=== PATIENT | female | born 1995 | race Caucasian/White ===

== ENCOUNTER 2016-11-30 09:43 | Inpatient (IN) | payer BC ==
[2016-11-30] MEDS: Lactated Ringers 1,000 ML IV SCH ×4 (10:40→21:25)
[2016-11-30] MEDS ORDERED: Ondansetron 4 MG/2 ML SDV IV PRN (12:26)
[2016-11-30] MEDS ORDERED: Nalbuphine 10 MG/1 ML Vial IVPUSH PRN (12:26)
[2016-11-30] MEDS ORDERED: fentaNYL 100 MCG/2 ML SDV ONE (13:22)
[2016-11-30] MEDS ORDERED: ePHEDrine 50 MG/ML SDV ONE (13:40)
[2016-11-30] MEDS ORDERED: Phenylephrine 1% 10 MG/ML SDV ONE (13:56)
--- NOTE | 2016-11-30 14:15 | PCM.SN ---
- Free Text/Narrative Note: called to provide labor pain relief via intrathecal for this patient. After chart reviewed, npo status verified, consent signed and monitors on, proceeded. With patient in sitting position, sterile prep/drape. Skin wheal at L3-4 with 1% Lido. LPX1 at L3-4 with 25g pencan spinal needle. Positive, free flowing clear CSF. No heme, no paresthesia. Then 6mg mpf HB spinal 0.75% marcaine, 20mcg sufenta, 30mcg fentanyl, 0.4ml preservative free normal saline, plus epi wash intrathecally. Block to around T2, pt reported pain relief with subsequent contractions. FHT's remained stable, but maternal SBP dropped so ephedrine, 20mg then another 20mg given. Pt anxious about density of block and SBP dropped below 100 again, so 100 phenylepherine given with good effect.
[2016-11-30] MEDS ORDERED: Oxytocin/Normal Saline 30 UNIT/500 ML BAG IV SCH (15:15)
[2016-11-30] MEDS ORDERED: Misoprostol 400 MCG (4 X 100 MCG TAB) RECTAL PRN (18:14)
[2016-11-30] MEDS ORDERED: Methylergonovine 0.2 MG/1 ML Amp IM PRN (18:14)
[2016-11-30] MEDS ORDERED: Lactated Ringers 500 ML IV ONE (18:14)
[2016-11-30] MEDS ORDERED: Lidocaine 1% 30 ML SDV INJECT PRN (18:14)
[2016-11-30] MEDS ORDERED: Carboprost Tromethamine 250 MCG/1 ML Amp IM PRN (18:14)
[2016-11-30] MEDS ORDERED: Sodium Chloride 0.9% 10 ML Syringe FLUSH PRN (18:14)
[2016-11-30] MEDS ORDERED: Simethicone 80 MG Tab.Chew PO PRN (18:20)
[2016-11-30] MEDS ORDERED: Benzocaine/Menthol 20%-0.5% Spray 56 GM Canister TOP PRN (18:20)
[2016-11-30] MEDS ORDERED: Zolpidem 5 MG Tab PO PRN (18:20)
--- NOTE | 2016-11-30 18:33 | PCM.DEL ---
L & D Note - General Info Date of Service: 11/30/16 (Time of delivery 1705) Mother's Due Date: 12/14/16 (38 weeks) - Delivery Note Labor: Spontaneous, Augmented by ARM (was having cxns on admit--mild, cervix 7+ cm dilated at clinic. b), Augmented by Oxytocin Delivery Outcome: Livebirth Infant Delivery Method: Spontaneous Vaginal Delivery Delivery Mode: Vacuum Extraction Presentation: Left Occiput Anterior (DANA) Nuchal Cord: Reduced (loose X 1 ) Prep: Povidone-Iodine (Betadine Anesthesia Type: Local, Intrathecal Anesthetic: Lidocaine (Xylocaine) 1% Plain Local Anesthetic Volume: 5cc Amniotic Fluid Description: Clear Episiotomy Type: None Laceration: 2nd Degree (small midline laceration) Suture type: Vicryl Suture size: 3-0 Placenta: Intact, Spontaneous Cord: 3 Vessels Estimated Blood Loss: 250 Resuscitation Needed: No : Suctioned, Bulb Syringe, Stimulated, Warmed, [place] Used (to mother's adbomen/chest for skin to skin contact and nursing. [facility]) Provider: Megan Humphrey Score 1 min: 8 Score 5 min: 9 Post Delivery Events: Shoulder Dystocia (mild, Viral and rotation of anterior shoulder forward under pubic bone successful) Second Stage Interventions: Reports: Encouragement Given, Pushing Effectively, Pushing, McRobert's Position Delivery Comments (Free Text/Narrative):: Used vacuum --low profile for 2 cxns, and regular for 2 contractions with excellent results. Induction Criteria - Palmer Score Palmer Score Dilation: > 5 cm Palmer Score Effacement: 60-70% Palmer Score 's Station: -2 Palmer Score Consistency: Soft Palmer Score Cervix Position: Anterior Palmer Score Total: 10 Palmer Score Presenting Part: Reports: Cephalic - Induction Gestational Age >/= 39 wks: No Medical Indication: advanced cervical dilation (7+cm, BBOW) at term (38cm) Estimated Pelvis: Reports: Adequate Reassuring Monitoring Strip: Yes Absence of Tachy Systole: Yes - Augmentation Estimated Pelvis: Reports: Adequate Weight Estimated:: Reports: AGA Reassuring Monitoring Strip: Yes Absence of Tachy Systole: Yes Vacuum Extractor Progress Note - Alternative Labor Strategies Considered Alternative Labor Strategies Considered:: Reports: Yes Strategies Considered:: Reports: Contraction Intensity Adequate, Empty Bladder, Rest Indications Considered:: Reports: Yes Indications:: Reports: Shortening of 2nd Stage for Maternal Benefit Time Out:: Reports: Yes - Patient Prepared Patient Prepared:: Reports: Yes Informed Consent:: Reports: Yes Risks: Reports: Yes Anesthesia/Analgesia Adequate:: Reports: No - Probability of Success High Probability of Success:: Reports: Yes Weight Estimated:: Reports: AGA Patient Diabetic:: Reports: No Pelvis Adequate:: Reports: Yes Position:: DANA/LOT Asynclitic:: Reports: No Station:: +2 - Application Time Maximum Application Time & Number of Pop-Offs Predetermined:: Reports: Yes Type of Vacuum Used:: Reports: Low profile, Cup: [place] type Vacuum Extraction: Successful - Exit Strategy Exit strategy available:: Reports: Yes and resuscitation teams readily available:: Reports: Yes Consult as indicated:: not indicated - General Info Date of Service: 11/30/16 - Review of Systems General: Reports: No Symptoms HEENT: Reports: No Symptoms Pulmonary: Reports: No Symptoms Cardiovascular: Reports: No Symptoms Gastrointestinal: Reports: No Symptoms Musculoskeletal: Reports: No Symptoms Skin: Reports: No Symptoms Neurological: Reports: No Symptoms Psychiatric: Reports: No Symptoms - Patient Data Weight - Most Recent: 215 lb Lab Results Last 24 Hours: Laboratory Results - last 24 hr 11/30/16 Range/Units 11:05 WBC 8.6 (5.0-10.0) 10^3/uL RBC 4.28 (4.2-5.4) 10^6/uL Hgb 11.2 L (12.0-16.0) g/dL Hct 34.8 L (37.0-47.0) % MCV 81.3 (80-100) fL MCH 26.2 L (27.0-34.0) pg MCHC 32.2 L (33.0-35.0) g/dL Plt Count 177 (150-450) 10^3/uL Med Orders - Current: Current Medications Acetaminophen (Tylenol) 650 mg PO Q4H PRN PRN Reason: Pain (Mild 1-3) and fever Benzocaine/Menthol (Dermoplast Pain Relief [place]) 0 gm TOP Q4H PRN PRN Reason: Perineal comfort measures Carboprost Tromethamine (Hemabate Ds) 250 mcg IM ASDIRECTED PRN PRN Reason: HEMORRHAGE Docusate Sodium (Colace) 100 mg PO BID PRN PRN Reason: Constipation Lactated Ringer's (Ringers, Lactated) 1,000 mls @ 125 mls/hr IV ASDIRECTED LEORA Last Admin: 11/30/16 12:56 Dose: 125 mls/hr Oxytocin/Sodium Chloride (Pitocin In Ns 30 Unit/500 Ml) 30 unit in 500 mls @ 2 mls/hr IV TITRATE LEORA; 2 MUNITS/MIN PRN Reason: Protocol Lactated Ringer's (Ringers, Lactated) 500 mls @ 500 mls/hr IV .BOLUS ONE Stop: 11/30/16 19:13 Ibuprofen (Motrin) 800 mg PO Q8H PRN PRN Reason: Mild Pain or Fever Lidocaine HCl (Xylocaine-Mpf 1%) 30 ml INJECT ASDIRECTED PRN PRN Reason: Perineal Repair Methylergonovine Maleate (Methergine) 0.2 mg IM ASDIRECTED PRN PRN Reason: Hemorrhage Misoprostol (Cytotec) 800 mcg RECTAL ASDIRECTED PRN PRN Reason: Hemorrhage Nalbuphine HCl (Nubain) 10 mg IVPUSH Q6H PRN PRN Reason: Pain (mild 1-3) Last Admin: 11/30/16 12:47 Dose: 10 mg Ondansetron HCl (Zofran) 4 mg IV Q4H PRN PRN Reason: Nausea/Vomiting Last Admin: 11/30/16 12:47 Dose: 4 mg Prenat Multivit/Katherine/Iron/Folic Ac ( Plus Iron) 1 each PO DAILY COUNT INCLUDES THE [facility] Prenat Multivit/Oil Tank Car Cleaner/Iron/Folic Ac ( Plus Iron) each PO DAILY COUNT INCLUDES THE [facility] Simethicone (Simethicone) 80 mg PO Q4H PRN PRN Reason: Gas Sodium Chloride (Saline Flush) 10 ml FLUSH ASDIRECTED PRN PRN Reason: Keep Vein Open Zolpidem Tartrate (Ambien) 5 mg PO BEDTIME PRN PRN Reason: Insomnia Discontinued Medications Ephedrine Sulfate (Ephedrine Sulfate) Confirm Administered Dose 50 mg .ROUTE .STK-MED ONE Stop: 11/30/16 13:41 Last Admin: 11/30/16 15:03 Dose: Not Given Fentanyl (Sublimaze) Confirm Administered Dose 100 mcg .ROUTE .STK-MED ONE Stop: 11/30/16 13:23 Last Admin: 11/30/16 15:03 Dose: Not Given Phenylephrine HCl (Yefri-Synephrine) Confirm Administered Dose 10 mg .ROUTE .STK- MED ONE Stop: 11/30/16 13:57 Last Admin: 11/30/16 15:03 Dose: Not Given Sufentanil Citrate (Sufenta) Confirm Administered Dose 50 mcg .ROUTE .STK-MED ONE Stop: 11/30/16 13:24 Last Admin: 11/30/16 15:03 Dose: Not Given - Exam General: Alert, Oriented HEENT: Pupils Equal, Pupils Reactive, EOMI, Mucous Membr. Moist/[place] Neck: Supple Lungs: Clear to Auscultation, Normal Respiratory Effort Cardiovascular: Regular Rate, Regular Rhythm (Female) Exam: Cervical Dilatation, Cervical Fluid (clear), Enlarged Uterus, Heart Tones (NST reactive) Extremities: Normal Inspection, Normal Range of Motion, Non-Tender, No Pedal Edema, Normal Capillary Refill Skin: Warm, Dry, Intact Neurological: No New Focal Deficit Psy/Mental Status: Alert, Normal Affect, Normal Mood - Problem List & Annotations (1) Vacuum extractor delivery, delivered SNOMED Code(s): 022138093 Code(s): O66.5 - ATTEMPTED APPLICATION OF VACUUM EXTRACTOR AND FORCEPS Status: Acute Current Visit: Yes (2) Mother currently breast-feeding SNOMED Code(s): 525526347 Code(s): VUS6844 - Status: Acute Current Visit: Yes (3) Blood type A+ SNOMED Code(s): 340089574 Code(s): Z67.10 - TYPE A BLOOD, RH POSITIVE Status: Acute Current Visit: Yes (4) Rubella immune SNOMED Code(s): 071250145 Code(s): Z78.9 - OTHER SPECIFIED HEALTH STATUS Status: Acute Current Visit: Yes (5) Group B Streptococcus not isolated SNOMED Code(s): 045471824 Code(s): LPC0574 - Status: Acute Current Visit: Yes (6) Maternal anemia in , antepartum SNOMED Code(s): 521594902 Code(s): O99.019 - ANEMIA COMPLICATING , UNSPECIFIED TRIMESTER Status: Acute Current Visit: Yes - Problem List Review Problem List Initiated/Reviewed/Updated: Yes - My Orders Last 24 Hours: My Active Orders 11/30/16 12:26 Nalbuphine [Nubain] 10 mg IVPUSH Q6H PRN Ondansetron [Zofran] 4 mg IV Q4H PRN 11/30/16 12:30 Lactated Ringers [Ringers, Lactated] 1,000 ml IV ASDIRECTED 11/30/16 15:15 Oxytocin/Normal Saline [Pitocin in NS 30 UNIT/500 ML] 30 unit in 500 ml IV TITRATE 11/30/16 18:14 Patient Status [ADT] Routine Communication Order [RC] ASDIRECTED Notify Provider Vital Signs OB [RC] ASDIRECTED Notify Provider [RC] PRN Up ad Denisa [RC] ASDIRECTED Vital Signs [RC] PER UNIT ROUTINE Acetaminophen [Tylenol] 650 mg PO Q4H PRN Carboprost Tromethamine [Hemabate DS] 250 mcg IM ASDIRECTED PRN Lactated Ringers [Ringers, Lactated] 500 ml IV .BOLUS Lidocaine 1% [Xylocaine-MPF 1%] 30 ml INJECT ASDIRECTED PRN Methylergonovine [Methergine] 0.2 mg IM ASDIRECTED PRN Misoprostol [Cytotec] 800 mcg RECTAL ASDIRECTED PRN Sodium Chloride 0.9% [Saline Flush] 10 ml FLUSH ASDIRECTED PRN Saline Lock Insert [OM.PC] Routine Resuscitation Status Routine 11/30/16 18:17 Pump Management, Intrathecal [RC] ASDIRECTED 11/30/16 18:20 Consult to Boilermaker Apprentice [CONS] Routine Benzocaine/Menthol [Dermoplast Pain Relief [place]] See Dose Instructions TOP Q4H PRN Docusate Sodium [Colace] 100 mg PO BID PRN Ibuprofen [Motrin] 800 mg PO Q8H PRN Simethicone 80 mg PO Q4H PRN Zolpidem [Ambien] 5 mg PO BEDTIME PRN 11/30/16 18:21 Assess Lochia [WOMSER] Per Unit Routine Assess Uterine Involution [WOMSER] Per Unit Routine Breast Pump [WOMSER] Per Unit Routine Ice Therapy [OM.PC] Per Unit Routine Perineal Care [OM.PC] Per Unit Routine Sitz Bath [OM.PC] Per Unit Routine 11/30/16 Dinner Regular Diet [DIET] 12/01/16 09:00 Vit with Ca/FA/Iron [ Plus Iron] 1 each PO DAILY Vit with Ca/FA/Iron [ Plus Iron] 1 tab PO DAILY 12/02/16 05:11 CBC W/O DIFF,HEMOGRAM [HEME] AM - Assessment Assessment:: 38 week WF G2 now P2 Delivery @ 1705 on 11-30-16 Vacuum assisted vaginal delivery presented in early labor/contractions with advanced cervical dilation 7+cm @ 38 weeks Blood type A+, GBS negative, Rubella Immune Viable male , 8lb 7oz, APGARs 8 & 9 nuchal X 1, loose, easily reduced mild shoulder dystocia EBL 250, small midline 2 degree lac - Plan Plan:: Plan: Routine cares PNV Likely home PPD #2 check hgb in 2 days. follow closely. transformation consultant to see. All questions answered. hmb
--- NOTE | 2016-11-30 18:53 | PCM.LDHP ---
L&D History of Present Illness - General Date of Service: 11/30/16 (admitted from [facility]) Admit Problem/Dx: Patient Status Order with Admit Dx/Problem 11/30/16 18:14 Patient Status [ADT] Routine Admission Diagnosis/Problem Admission Diagnosis/Problem Complication of in third trimester Source of Information: Patient, Old Records, Provider, Other (EPIC pegnancy episode) History Limitations: Reports: No Limitations - History of Present Illness Timing/Duration: Reports: gradual onset, intermittent, waxing/waning Location, : Reports: Uterus Quality: Reports: Ache, Pressure Severity: Mild Pain Score: 8 - Related Data Allergies/Adverse Reactions: Allergies Allergy/AdvReac Type Severity Reaction Status Date / Time No Known Allergies Allergy Verified 11/30/16 10:46 Home Medications: Home Meds Vit with Ca/FA/Iron [ Plus Iron] 1 tab PO DAILY 11/26/16 [ History] Past Medical History - Past Health History Medical/Surgical History: Denies 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 [place] They have so named [place].) Occupation: Employed H&P Review of Systems - Review of Systems: Review Of Systems: See Below General: Reports: No Symptoms HEENT: Reports: No Symptoms Pulmonary: Reports: No Symptoms Cardiovascular: Reports: No Symptoms Gastrointestinal: Reports: No Symptoms Genitourinary: Reports: No Symptoms Musculoskeletal: Reports: No Symptoms Skin: Reports: No Symptoms Psychiatric: Reports: No Symptoms Neurological: Reports: No Symptoms Hematologic/Lymphatic: Reports: No Symptoms Immunologic: Reports: No Symptoms L&D Exam - Exam Exam: See Below - Vital Signs Vital Signs: Last Vital Signs Temp 99.5 F 11/30/16 11:00 Pulse 76 11/30/16 11:00 Resp BP 106/67 11/30/16 11:00 Pulse Ox Weight: 215 lb - OB Specific Contraction Duration (sec): 60-90 Contraction Frequency (min): 2-4 Contraction Intensity: Mild Presentation: Left Occiput Anterior (DANA) - Palmer Score Palmer Score Cervix Position: Anterior Palmer Score Consistency: Soft Palmer Score Dilation: > 5 cm Palmer Score 's Station: -2 - Exam General: Alert, Oriented HEENT: PERRLA, Conjunctiva Clear, EACs Clear, EOMI, Hearing Intact, Mucosa Moist & [place], Nares Patent, Normal Nasal Septum, Posterior Pharynx Clear, TMs Clear Neck: Supple, Trachea Midline Lungs: Clear to Auscultation, Normal Respiratory Effort Cardiovascular: Regular Rate, Regular Rhythm Genitourinary: Cervical dilitation (7+cm, BOWI and bulging, -2 st, ballots in clinic) Back Exam: Normal Inspection, Full Range of Motion Extremities: Normal Inspection, Normal Range of Motion, Non-Tender, No Pedal Edema, Normal Capillary Refill Skin: Warm, Dry, Intact Neurological: Cranial Nerves Intact, Reflexes Equal Bilateral Psychiatric: Alert, Normal Affect, Normal Mood - Patient Data Lab Results Last 24 hrs: Laboratory Results - last 24 hr 11/30/16 Range/Units 11:05 WBC 8.6 (5.0-10.0) 10^3/uL RBC 4.28 (4.2-5.4) 10^6/uL Hgb 11.2 L (12.0-16.0) g/dL Hct 34.8 L (37.0-47.0) % MCV 81.3 (80-100) fL MCH 26.2 L (27.0-34.0) pg MCHC 32.2 L (33.0-35.0) g/dL Plt Count 177 (150-450) 10^3/uL Result Diagrams: 11/30/16 11:05 - Problem List (1) Vacuum extractor delivery, delivered SNOMED Code(s): 792621305 ICD Code: O66.5 - ATTEMPTED APPLICATION OF VACUUM EXTRACTOR AND FORCEPS Status: Acute Current Visit: Yes (2) Mother currently breast-feeding SNOMED Code(s): 611631571 ICD Code: XYA4371 - Status: Acute Current Visit: Yes (3) Blood type A+ SNOMED Code(s): 287410595 ICD Code: Z67.10 - TYPE A BLOOD, RH POSITIVE Status: Acute Current Visit : Yes (4) Rubella immune SNOMED Code(s): 873873585 ICD Code: Z78.9 - OTHER SPECIFIED HEALTH STATUS Status: Acute Current Visit: Yes (5) Group B Streptococcus not isolated SNOMED Code(s): 121473708 ICD Code: FCA6928 - Status: Acute Current Visit: Yes (6) Maternal anemia in , antepartum SNOMED Code(s): 582828926 ICD Code: O99.019 - ANEMIA COMPLICATING , UNSPECIFIED TRIMESTER Status: Acute Current Visit: Yes (7) complication, antepartum SNOMED Code(s): 904530825, 274705326 ICD Code: O26.90 - RELATED CONDITIONS, UNSP, UNSPECIFIED TRIMESTER Status: Acute Current Visit: Yes Problem List Initiated/Reviewed/Updated: Yes Orders Last 24hrs: Active Orders 24 hr Category Date Time Status Patient Status [ADT] Routine ADT 11/30/16 18:14 Ordered Communication Order [RC] ASDIRECTED Care 11/30/16 18:14 Ordered Notify Provider Vital Signs OB [RC] ASDIRECTED Care 11/30/16 18:14 Ordered Notify Provider [RC] PRN Care 11/30/16 18:14 Ordered Pump Management, Intrathecal [RC] ASDIRECTED Care 11/30/16 18:17 Ordered Up ad Denisa [RC] ASDIRECTED Care 11/30/16 18:14 Ordered Vital Signs [RC] PER UNIT ROUTINE Care 11/30/16 18:14 Ordered Consult to Applications Processor [CONS] Routine Cons 11/30/16 18:20 Ordered Regular Diet [DIET] Diet 11/30/16 Dinner Ordered CBC W/O DIFF,HEMOGRAM [HEME] AM Lab 12/02/16 05:11 Ordered Acetaminophen [Tylenol] Med 11/30/16 18:14 Ordered 650 mg PO Q4H PRN Benzocaine/Menthol [Dermoplast Pain Relief [place]] Med 11/30/16 18:20 Ordered See Dose Instructions TOP Q4H PRN Carboprost Tromethamine [Hemabate DS] Med 11/30/16 18:14 Ordered 250 mcg IM ASDIRECTED PRN Docusate Sodium [Colace] Med 11/30/16 18:20 Ordered 100 mg PO BID PRN Ibuprofen [Motrin] Med 11/30/16 18:20 Ordered 800 mg PO Q8H PRN Lactated Ringers [Ringers, Lactated] 1,000 ml Med 11/30/16 12:30 Active IV ASDIRECTED Lactated Ringers [Ringers, Lactated] 500 ml Med 11/30/16 18:14 Ordered IV .BOLUS Lidocaine 1% [Xylocaine-MPF 1%] Med 11/30/16 18:14 Ordered 30 ml INJECT ASDIRECTED PRN Methylergonovine [Methergine] Med 11/30/16 18:14 Ordered 0.2 mg IM ASDIRECTED PRN Misoprostol [Cytotec] Med 11/30/16 18:14 Ordered 800 mcg RECTAL ASDIRECTED PRN Nalbuphine [Nubain] Med 11/30/16 12:26 Active 10 mg IVPUSH Q6H PRN Ondansetron [Zofran] Med 11/30/16 12:26 Active 4 mg IV Q4H PRN Oxytocin/Normal Saline [Pitocin in NS 30 UNIT/500 ML] Med 11/30/16 15:15 Active 30 unit in 500 ml IV TITRATE Vit with Ca/FA/Iron [ Plus Iron] Med 12/01/16 09:00 Ordered 1 tab PO DAILY Simethicone Med 11/30/16 18:20 Ordered 80 mg PO Q4H PRN Sodium Chloride 0.9% [Saline Flush] Med 11/30/16 18:14 Ordered 10 ml FLUSH ASDIRECTED PRN Zolpidem [Ambien] Med 11/30/16 18:20 Ordered 5 mg PO BEDTIME PRN Assess Lochia [WOMSER] Per Unit Routine Oth 11/30/16 18:21 Ordered Assess Uterine Involution [WOMSER] Per Unit Routine Oth 11/30/16 18:21 Ordered Breast Pump [WOMSER] Per Unit Routine Oth 11/30/16 18:21 Ordered Ice Therapy [OM.PC] Per Unit Routine Oth 11/30/16 18:21 Ordered Perineal Care [OM.PC] Per Unit Routine Oth 11/30/16 18:21 Ordered Saline Lock Insert [OM.PC] Routine Oth 11/30/16 18:14 Ordered Sitz Bath [OM.PC] Per Unit Routine Oth 11/30/16 18:21 Ordered Resuscitation Status Routine Resus Stat 11/30/16 18:14 Ordered Medication Orders Acetaminophen (Tylenol) 650 mg PO Q4H PRN PRN Reason: Pain (Mild 1-3) and fever Benzocaine/Menthol (Dermoplast Pain Relief [place]) 0 gm TOP Q4H PRN PRN Reason: Perineal comfort measures Carboprost Tromethamine (Hemabate Ds) 250 mcg IM ASDIRECTED PRN PRN Reason: HEMORRHAGE Docusate Sodium (Colace) 100 mg PO BID PRN PRN Reason: Constipation Lactated Ringer's (Ringers, Lactated) 1,000 mls @ 125 mls/hr IV ASDIRECTED LEORA Last Admin: 11/30/16 12:56 Dose: 125 mls/hr Infusion: 11/30/16 12:56 Dose: 125 mls/hr Admin: 11/30/16 10:40 Dose: 125 mls/hr Oxytocin/Sodium Chloride (Pitocin In Ns 30 Unit/500 Ml) 30 unit in 500 mls @ 2 mls/hr IV TITRATE LEORA; 2 MUNITS/MIN PRN Reason: Protocol Lactated Ringer's (Ringers, Lactated) 500 mls @ 500 mls/hr IV .BOLUS ONE Stop: 11/30/16 19:13 Ibuprofen (Motrin) 800 mg PO Q8H PRN PRN Reason: Mild Pain or Fever Lidocaine HCl (Xylocaine-Mpf 1%) 30 ml INJECT ASDIRECTED PRN PRN Reason: Perineal Repair Methylergonovine Maleate (Methergine) 0.2 mg IM ASDIRECTED PRN PRN Reason: Hemorrhage Misoprostol (Cytotec) 800 mcg RECTAL ASDIRECTED PRN PRN Reason: Hemorrhage Nalbuphine HCl (Nubain) 10 mg IVPUSH Q6H PRN PRN Reason: Pain (mild 1-3) Last Admin: 11/30/16 12:47 Dose: 10 mg Ondansetron HCl (Zofran) 4 mg IV Q4H PRN PRN Reason: Nausea/Vomiting Last Admin: 11/30/16 12:47 Dose: 4 mg Prenat Multivit/Fundraising Manager/Iron/Folic Ac ( Plus Iron) 1 each PO DAILY LEORA Simethicone (Simethicone) 80 mg PO Q4H PRN PRN Reason: Gas Sodium Chloride (Saline Flush) 10 ml FLUSH ASDIRECTED PRN PRN Reason: Keep Vein Open Zolpidem Tartrate (Ambien) 5 mg PO BEDTIME PRN PRN Reason: Insomnia Assessment/Plan Comment:: ASsessment: 38 week gestation Advanced cervical dilation blood type A+ GBS negative Rubella immune Anemia, mild Plan: admit to Labor and delivery as discussed. NST on admit. plan AROM when able . Will use pitocin augmentation if needed. Anticipate vaginal delivery later today. All questions answered. discussed pitocin, AROM, cytotec, etc @ [facility] with Millicent. Further management pending her course in labor. NST was reactive and reassuring. hmb
[2016-11-30] MEDS: Ibuprofen 800 MG Tab PO PRN (19:34)
[2016-11-30] MEDS: Acetaminophen 325 MG Tab PO PRN (22:28)
[2016-11-30] MEDS: Docusate Sodium 100 MG Cap PO PRN (22:28)
[2016-12-01] MEDS: Ibuprofen 800 MG Tab PO PRN ×3 (04:16→21:54)
[2016-12-01] MEDS ORDERED: Prenatal Multivitamin with Calcium/Folic Acid/Iron Tab PO SCH (09:00)
[2016-12-01] MEDS: Docusate Sodium 100 MG Cap PO PRN ×2 (10:50→21:55)
[2016-12-01] MEDS: Prenatal Multivitamin with Calcium/Folic Acid/Iron Tab PO SCH (10:51)
--- NOTE | 2016-12-01 11:00 | PCM.POSTAN ---
POST ANESTHESIA ASSESSMENT - MENTAL STATUS Mental Status: Alert - VITAL SIGNS Pulse Rate: 81 Resp Rate: 16 Blood Pressure: 109/58 Temperature: 37.6 C - RESPIRATORY Respiratory Status: Respiratory Rate WNL - CARDIOVASCULAR CV Status: Pulse Rate WNL - GASTROINTESTINAL GI Status: No Symptoms - POST OP HYDRATION Hydration Status: Adequate & Stable - OBSERVATIONS Free Text/Narrative:: Pt without c/o. No PDPH, no PONV, no paresthesias, no c/o pain at injection site. No post anesthesia complications noted.
[2016-12-01] MEDS ORDERED: Phenylephrine 1% 10 MG/ML SDV IV ONE (14:48)
[2016-12-01] MEDS ORDERED: ePHEDrine 50 MG/ML SDV IV ONE (14:48)
[2016-12-01] MEDS ORDERED: fentaNYL 100 MCG/2 ML SDV ITHECAL ONE (14:48)
[2016-12-01] MEDS: Acetaminophen 325 MG Tab PO PRN (17:05)
[2016-12-02] MEDS: Ibuprofen 800 MG Tab PO PRN ×2 (05:11→10:20)
--- NOTE | 2016-12-02 07:21 | PN ---
DATE: 12/01/2016 SUBJECTIVE: This 21-year-old female G2 now P2002, s/p vacuum assisted delivery is resting comfortably in bed. Pain is well controlled on p.o. medications. Tolerating general diet. Denies nausea, vomiting, or diarrhea. She is voiding without difficulty. ambulating without dizziness. Denies any shortness of breath or cardiac palpitations. She is attempting to breastfeed the with minor difficulty due to the 's latching issue. Shield was used and baby showed slight improvement in . The patient admits to minor vaginal bleeding on the pads, however, it has improved since yesterday. OBJECTIVE: Vital Signs: Temperature 99.7, heart rate 81, blood pressure 109/81, respirations 16, and O2 of 99%. Cardiac: Regular rate and rhythm. S1 and S2 without murmurs. Pulmonary: Clear bilaterally to auscultations. Breasts: Engorgement noted bilaterally. Abdomen: Soft with fundus palpated below the umbilicus and is firm. Extremities: Denies any pain and is able to move all 4 extremities without any issue. Minimal swelling. ASSESSMENT: day 1 via vacuum assisted delivery with second-degree laceration. Breast feeding mother. PLAN: Continue to work with the strategy execution consultant. Anticipate discharge in 24 to 48 hours. Continue routine post delivery care. All questions answered. History and physical done by Dr. Herrera. Assessment and plan done by Dr. Herrera. Dictation done on behalf of Dr. Herrera. [facility] /[id number] Patient seen and examined with LEXUS Chan. Agree with his note as scribed on my behalf. -[facility] 12/04/16 [id number]. [place]
[2016-12-02 08:16] VITALS: BP 111/65
[2016-12-02] MEDS: Prenatal Multivitamin with Calcium/Folic Acid/Iron Tab PO SCH (10:20)
[2016-12-02] MEDS: Docusate Sodium 100 MG Cap PO PRN (10:20)
--- NOTE | 2016-12-02 18:13 | PCM.DCSUM1 ---
<Maximo Li - Last Filed: 12/02/16 18:29> Discharge Summary - Hospital Course Free Text/Narrative:: History and physical done by Dr. Herrera. Assessment and plan done by Dr. Herrera. Dictation done on behalf of Dr. Herrera. Since delivery, the patient has been doing well. - Discharge Data Discharge Date: 12/02/16 Discharge Disposition: Home, Self-Care 01 Condition: Good - Patient Summary/Data Consults: Consultations 11/30/16 18:20 Consult to Diesel Technician [CONS] Routine - Patient Instructions Diet: Usual Diet as Tolerated Activity: No Lifting Over 20 Pounds, No Strenuous Activities (Pelvic rest for 6 weeks. ) Driving: Do Not Drive Showering/Bathing: May Shower Notify Provider of: Fever, Increased Pain, Swelling and Redness, Drainage, Nausea and/or Vomiting Other/Special Instructions: Routine post vaginal delivery instructions for breast feeding mother. - Discharge Plan Prescriptions/Med Rec: Acetaminophen [Tylenol] 650 mg PO Q4H PRN #30 tablet PRN Reason: Pain Docusate Sodium [Colace] 100 mg PO BID PRN #60 cap PRN Reason: Constipation Ferrous Sulfate 325 mg PO BID #60 tablet.dr Hodge [IJD: Ibuprofen] 600 mg PO Q6H PRN #30 tablet PRN Reason: Pain Home Medications: Home Meds Acetaminophen [Tylenol] 650 mg PO Q4H PRN #30 tablet 12/02/16 [Rx] Docusate Sodium [Colace] 100 mg PO BID PRN #60 cap 12/02/16 [Rx] Ferrous Sulfate 325 mg PO BID #60 tablet. 12/02/16 [Rx] Ibuprofen [IJD: Ibuprofen] 600 mg PO Q6H PRN #30 tablet 12/02/16 [Rx] Vit with Ca/FA/Iron [ Plus Iron] 1 each PO DAILY tablet [Rx] Patient Handouts: Vaginal Delivery, Care After Referrals: Megan Humphrey MD [Primary Care Provider] - (Make 6 week postapartum appointment when you bring baby for circumcision on Wednesday. ) - Discharge Summary/Plan Comment DC Time >30 min.: No - General Info Date of Service: 12/02/16 Admission Dx/Problem (Free Text: Patient Status Order with Admit Dx/Problem 11/30/16 18:14 Patient Status [ADT] Routine Admission Diagnosis/Problem Admission Diagnosis/Problem Complication of in third trimester Subjective Update: a 21 yo female patient, day 2 from [facility]. The patient admits to minor pain and discomfort of the peritoneal area. She states that pain is well controlled on PO medication. Functional Status: Reports: Pain Controlled - Review of Systems General: Reports: No Symptoms HEENT: Reports: No Symptoms Pulmonary: Reports: No Symptoms Cardiovascular: Reports: No Symptoms Gastrointestinal: Reports: No Symptoms Genitourinary: Reports: No Symptoms Musculoskeletal: Reports: No Symptoms Skin: Reports: No Symptoms Neurological: Reports: No Symptoms Psychiatric: Reports: No Symptoms - Patient Data Vitals - Most Recent: Last Vital Signs Temp 98.2 F 12/02/16 08:00 Pulse 81 12/02/16 08:00 Resp 18 12/02/16 08:00 BP 111/65 12/02/16 08:00 Pulse Ox 99 12/02/16 08:00 Weight - Most Recent: 97.522 kg Lab Results - Last 24 hrs: Laboratory Results - last 24 hr 12/02/16 Range/Units 05:50 WBC 8.5 (5.0-10.0) 10^3/uL RBC 3.95 L (4.2-5.4) 10^6/uL Hgb 10.2 L (12.0-16.0) g/dL Hct 32.6 L (37.0-47.0) % MCV 82.5 (80-100) fL MCH 25.8 L (27.0-34.0) pg MCHC 31.3 L (33.0-35.0) g/dL Plt Count 160 (150-450) 10^3/uL Med Orders - Current: Current Medications Discontinued Medications Acetaminophen (Tylenol) 650 mg PO Q4H PRN PRN Reason: Pain (Mild 1-3) and fever Last Admin: 12/01/16 17:05 Dose: 650 mg Benzocaine/Menthol (Dermoplast Pain Relief [place]) 0 gm TOP Q4H PRN PRN Reason: Perineal comfort measures Last Admin: 11/30/16 20:17 Dose: 1 applic Carboprost Tromethamine (Hemabate Ds) 250 mcg IM ASDIRECTED PRN PRN Reason: HEMORRHAGE Docusate Sodium (Colace) 100 mg PO BID PRN PRN Reason: Constipation Last Admin: 12/02/16 10:20 Dose: 100 mg Ephedrine Sulfate (Ephedrine Sulfate) Confirm Administered Dose 50 mg .ROUTE .STK-MED ONE Stop: 11/30/16 13:41 Last Admin: 11/30/16 15:03 Dose: Not Given Ephedrine Sulfate (Ephedrine Sulfate) 40 mg IV .STK-MED ONE Stop: 12/01/16 14:49 Fentanyl (Sublimaze) Confirm Administered Dose 100 mcg .ROUTE .STK-MED ONE Stop: 11/30/16 13:23 Last Admin: 11/30/16 15:03 Dose: Not Given Fentanyl (Sublimaze) 30 mcg ITHECAL .STK-MED ONE Stop: 12/01/16 14:49 Lactated Ringer's (Ringers, Lactated) 1,000 mls @ 125 mls/hr IV ASDIRECTED LEORA Last Admin: 11/30/16 21:25 Dose: 125 mls/hr Oxytocin/Sodium Chloride (Pitocin In Ns 30 Unit/500 Ml) 30 unit in 500 mls @ 2 mls/hr IV TITRATE LEORA; 2 MUNITS/MIN PRN Reason: Protocol Last Titration: 11/30/16 19:30 Dose: Infused Lactated Ringer's (Ringers, Lactated) 500 mls @ 500 mls/hr IV .BOLUS ONE Stop: 11/30/16 19:13 Last Admin: 11/30/16 21:21 Dose: Not Given Ibuprofen (Motrin) 800 mg PO Q8H PRN PRN Reason: Mild Pain or Fever Last Admin: 12/02/16 10:20 Dose: 800 mg Lidocaine HCl (Xylocaine-Mpf 1%) 30 ml INJECT ASDIRECTED PRN PRN Reason: Perineal Repair Last Admin: 11/30/16 17:15 Dose: 10 ml Methylergonovine Maleate (Methergine) 0.2 mg IM ASDIRECTED PRN PRN Reason: Hemorrhage Misoprostol (Cytotec) 800 mcg RECTAL ASDIRECTED PRN PRN Reason: Hemorrhage Nalbuphine HCl (Nubain) 10 mg IVPUSH Q6H PRN PRN Reason: Pain (mild 1-3) Last Admin: 11/30/16 12:47 Dose: 10 mg Ondansetron HCl (Zofran) 4 mg IV Q4H PRN PRN Reason: Nausea/Vomiting Last Admin: 11/30/16 12:47 Dose: 4 mg Phenylephrine HCl (Yefri-Synephrine) Confirm Administered Dose 10 mg .ROUTE .STK- MED ONE Stop: 11/30/16 13:57 Last Admin: 11/30/16 15:03 Dose: Not Given Phenylephrine HCl (Yefri-Synephrine) 0.1 mg IV .STK-MED ONE Stop: 12/01/16 14:49 Prenat Multivit/[place]/Iron/Folic Ac ( Plus Iron) 1 each PO DAILY LEORA Last Admin: 12/02/16 10:20 Dose: 1 each Simethicone (Simethicone) 80 mg PO Q4H PRN PRN Reason: Gas Sodium Chloride (Saline Flush) 10 ml FLUSH ASDIRECTED PRN PRN Reason: Keep Vein Open Sufentanil Citrate (Sufenta) Confirm Administered Dose 50 mcg .ROUTE .STK-MED ONE Stop: 11/30/16 13:24 Last Admin: 11/30/16 15:03 Dose: Not Given Sufentanil Citrate (Sufenta) 20 mcg ITHECAL .STK-MED ONE Stop: 12/01/16 14:49 Zolpidem Tartrate (Ambien) 5 mg PO BEDTIME PRN PRN Reason: Insomnia - Exam General: Reports: Alert, Oriented HEENT: Reports: Pupils Reactive, EOMI, Mucous Membr. Moist/[place] Neck: Reports: Supple Lungs: Reports: Clear to Auscultation, Normal Respiratory Effort Cardiovascular: Reports: Regular Rate, Regular Rhythm GI/Abdominal Exam: Normal Bowel Sounds, Soft, Non-Tender, No Organomegaly, No Distention, No Abnormal Bruit, No Mass, Pelvis Stable Back Exam: Reports: Full Range of Motion Extremities: Normal Inspection, Normal Range of Motion, Non-Tender, No Pedal Edema, Normal Capillary Refill Skin: Reports: Warm, Dry, Intact Neurological: Reports: No New Focal Deficit Psy/Mental Status: Reports: Alert, Normal Affect, Normal Mood Discharge Operative/Procedures - Procedures Performed Operations: Secondary Lacceration Repair Operations/Procedure Comment: Patient states that bleeding on pad is minimal and pain is well controlled. *Q Meaningful Use (DIS) - VTE *Q VTE Criteria *Q: - Stroke *Q Stroke Criteria *Q: - AMI *Q AMI Criteria *Q: <Louann Frias - Last Filed: 12/04/16 02:36> Discharge Summary - Patient Summary/Data Consults: Consultations 11/30/16 18:20 Consult to Diesel Technician [CONS] Routine - Discharge Summary/Plan Comment Discharge Summary/Plan Comment: S/P vaginal delivery Breast feeding mother Anemia Patient seen and examined with Maximo Li, MS4. Agree with his note as scribed on my behalf. 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 12/04/16 0236 - Patient Data Vitals - Most Recent: Last Vital Signs Temp 98.2 F 12/02/16 08:00 Pulse 81 12/02/16 08:00 Resp 18 12/02/16 08:00 BP 111/65 12/02/16 08:00 Pulse Ox 99 12/02/16 08:00 Med Orders - Current: Current Medications Discontinued Medications Acetaminophen (Tylenol) 650 mg PO Q4H PRN PRN Reason: Pain (Mild 1-3) and fever Last Admin: 12/01/16 17:05 Dose: 650 mg Benzocaine/Menthol (Dermoplast Pain Relief [place]) 0 gm TOP Q4H PRN PRN Reason: Perineal comfort measures Last Admin: 11/30/16 20:17 Dose: 1 applic Carboprost Tromethamine (Hemabate Ds) 250 mcg IM ASDIRECTED PRN PRN Reason: HEMORRHAGE Docusate Sodium (Colace) 100 mg PO BID PRN PRN Reason: Constipation Last Admin: 12/02/16 10:20 Dose: 100 mg Ephedrine Sulfate (Ephedrine Sulfate) Confirm Administered Dose 50 mg .ROUTE .STK-MED ONE Stop: 11/30/16 13:41 Last Admin: 11/30/16 15:03 Dose: Not Given Ephedrine Sulfate (Ephedrine Sulfate) 40 mg IV .STK-MED ONE Stop: 12/01/16 14:49 Fentanyl (Sublimaze) Confirm Administered Dose 100 mcg .ROUTE .STK-MED ONE Stop: 11/30/16 13:23 Last Admin: 11/30/16 15:03 Dose: Not Given Fentanyl (Sublimaze) 30 mcg ITHECAL .STK-MED ONE Stop: 12/01/16 14:49 Lactated Ringer's (Ringers, Lactated) 1,000 mls @ 125 mls/hr IV ASDIRECTED LEORA Last Admin: 11/30/16 21:25 Dose: 125 mls/hr Oxytocin/Sodium Chloride (Pitocin In Ns 30 Unit/500 Ml) 30 unit in 500 mls @ 2 mls/hr IV TITRATE LEORA; 2 MUNITS/MIN PRN Reason: Protocol Last Titration: 11/30/16 19:30 Dose: Infused Lactated Ringer's (Ringers, Lactated) 500 mls @ 500 mls/hr IV .BOLUS ONE Stop: 11/30/16 19:13 Last Admin: 11/30/16 21:21 Dose: Not Given Ibuprofen (Motrin) 800 mg PO Q8H PRN PRN Reason: Mild Pain or Fever Last Admin: 12/02/16 10:20 Dose: 800 mg Lidocaine HCl (Xylocaine-Mpf 1%) 30 ml INJECT ASDIRECTED PRN PRN Reason: Perineal Repair Last Admin: 11/30/16 17:15 Dose: 10 ml Methylergonovine Maleate (Methergine) 0.2 mg IM ASDIRECTED PRN PRN Reason: Hemorrhage Misoprostol (Cytotec) 800 mcg RECTAL ASDIRECTED PRN PRN Reason: Hemorrhage Nalbuphine HCl (Nubain) 10 mg IVPUSH Q6H PRN PRN Reason: Pain (mild 1-3) Last Admin: 11/30/16 12:47 Dose: 10 mg Ondansetron HCl (Zofran) 4 mg IV Q4H PRN PRN Reason: Nausea/Vomiting Last Admin: 11/30/16 12:47 Dose: 4 mg Phenylephrine HCl (Yefri-Synephrine) Confirm Administered Dose 10 mg .ROUTE .STK- MED ONE Stop: 11/30/16 13:57 Last Admin: 11/30/16 15:03 Dose: Not Given Phenylephrine HCl (Yefri-Synephrine) 0.1 mg IV .STK-MED ONE Stop: 12/01/16 14:49 Prenat Multivit/[place]/Iron/Folic Ac ( Plus Iron) 1 each PO DAILY LEORA Last Admin: 12/02/16 10:20 Dose: 1 each Simethicone (Simethicone) 80 mg PO Q4H PRN PRN Reason: Gas Sodium Chloride (Saline Flush) 10 ml FLUSH ASDIRECTED PRN PRN Reason: Keep Vein Open Sufentanil Citrate (Sufenta) Confirm Administered Dose 50 mcg .ROUTE .STK-MED ONE Stop: 11/30/16 13:24 Last Admin: 11/30/16 15:03 Dose: Not Given Sufentanil Citrate (Sufenta) 20 mcg ITHECAL .STK-MED ONE Stop: 12/01/16 14:49 Zolpidem Tartrate (Ambien) 5 mg PO BEDTIME PRN PRN Reason: Insomnia *Q Meaningful Use (DIS) - VTE *Q VTE Criteria *Q: - Stroke *Q Stroke Criteria *Q: - AMI *Q AMI Criteria *Q:
== END 2016-12-02 10:45 | disposition home or self-care (01) | DRG 560 ==
LOC: DL.OBCHECK 09:43 → DL.OB 09:45 → OBSVTOIN 17:05
PROVIDERS: ADMIT Family Medicine; ATTEND Family Medicine
PROC: 4A1HXFZ Monitoring of Products of Conception, Cardiac Rhythm, External Approach (ICD-10-PCS; principal; 2016-11-30)
PROC: 10D07Z6 Extraction of Products of Conception, Vacuum, Via Natural or Artificial Opening (ICD-10-PCS; 2016-11-30)
PROC: 10907ZC Drainage of Amniotic Fluid, Therapeutic from Products of Conception, Via Natural or Artificial Opening (ICD-10-PCS; 2016-11-30)
PROC: 0KQM0ZZ Repair Perineum Muscle, Open Approach (ICD-10-PCS; 2016-11-30)
PROC: 00HU33Z Insertion of Infusion Device into Spinal Canal, Percutaneous Approach (ICD-10-PCS; 2016-11-30)
PROC: 3E0R3CZ (ICD-10-PCS; 2016-11-30)
DX: O99.02 Anemia complicating childbirth (principal); O70.1 Second degree perineal laceration during delivery; O69.81X0 Labor and delivery complicated by cord around neck, without compression, not applicable or unspecified; O66.0 Obstructed labor due to shoulder dystocia; Z3A.38 38 weeks gestation of pregnancy; Z37.0 Single live birth
CPT/HCPCS: 36415; 85027; A9270-GY; J2300; J2370; J2405; J2590; J3010; J7120

== ENCOUNTER 2019-06-07 09:51 | Inpatient (IN) | payer BC ==
[2019-06-07] MEDS ORDERED: Lactated Ringers 1,000 ML IV ONE (10:39)
[2019-06-07] MEDS ORDERED: Ondansetron 4 MG/2 ML SDV IVPUSH PRN (10:39)
[2019-06-07] MEDS ORDERED: Misoprostol 400 MCG (4 X 100 MCG TAB) RECTAL PRN (10:39)
[2019-06-07] MEDS ORDERED: Methylergonovine 0.2 MG/1 ML Amp IM PRN (10:39)
[2019-06-07] MEDS ORDERED: Tranexamic Acid 1,000 MG in Sodium Chloride 0.9% 100 ML IV PRN (10:39)
[2019-06-07] MEDS ORDERED: Carboprost Tromethamine 250 MCG/1 ML Amp IM PRN (10:39)
[2019-06-07] MEDS ORDERED: Lidocaine 1% 30 ML SDV INJECT PRN (10:39)
[2019-06-07] MEDS ORDERED: Sodium Chloride 0.9% 10 ML Syringe FLUSH PRN (10:39)
[2019-06-07] MEDS ORDERED: Oxytocin/Normal Saline 30 UNIT/500 ML BAG IV SCH (10:45)
[2019-06-07] MEDS: Lactated Ringers 1,000 ML IV SCH ×2 (12:15→14:52)
--- NOTE | 2019-06-07 14:19 | PCM.LDHP ---
L&D History of Present Illness - General Date of Service: 06/07/19 (Admit H&P) Admit Problem/Dx: Patient Status Order with Admit Dx/Problem 06/07/19 10:39 Patient Status [ADT] Routine Admission Diagnosis/Problem Admission Diagnosis/Problem Labor established 06/07/19 14:18 24yo Source of Information: Patient, Family, Provider, RN (EPIC episode, notes from clinic), Other History Limitations: Reports: No Limitations - History of Present Illness Introduction:: Temi is a delightful 24yo WF Timing/Duration: Reports: intermittent Location, : Reports: Uterus Quality: Reports: Ache, Pressure Severity: Mild - Related Data Allergies/Adverse Reactions: Allergies Allergy/AdvReac Type Severity Reaction Status Date / Time No Known Allergies Allergy Verified 06/07/19 12:26 Home Medications: Home Meds Vit with Ca/FA/Iron [ Plus Iron] 1 each PO DAILY tablet [Rx] Past Medical History - Past Health History Medical/Surgical History: Denies Medical/Surgical History HEENT History: Reports: Impaired Vision Cardiovascular History: Reports: None Respiratory History: Reports: None Gastrointestinal History: Reports: None Genitourinary History: Reports: None REPORTING SPECIALIST History: Reports: Musculoskeletal History: Reports: None Neurological History: Reports: None Psychiatric History: Reports: None Endocrine/Metabolic History: Reports: None Hematologic History: Reports: None Immunologic History: Reports: None Oncologic (Cancer) History: Reports: None Dermatologic History: Reports: None - Infectious Disease History Infectious Disease History: Reports: Chicken Pox - Past Surgical History Head Surgeries/Procedures: Reports: None Social & Family History - Family History Family Medical History: Noncontributory Endocrine/Metabolic: Reports: Diabetes, type II - Tobacco Use Smoking Status *Q: Never Smoker Second Hand Smoke Exposure: No - Caffeine Use Caffeine Use: Reports: Coffee - Recreational Drug Use Recreational Drug Use: No - Living Situation & Occupation Living situation: Reports: with Significant Other (engaged to [employer] Wayne, [place] 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 They live [place] his [place]. They have so named Prince.) Occupation: Employed Social History Comment: Lives with filuisito Wayne, on his [place]'s [place] [employer]. 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 they have 2 sons, Prince and Armando. H&P Review of Systems - Review of Systems: Review Of Systems: Comprehensive ROS is negative, except as noted in HPI. L&D Exam - Exam Exam: See Below - Vital Signs Vital Signs: Last Vital Signs Temp 99.7 F 06/07/19 10:15 Pulse 83 06/07/19 10:31 Resp 16 06/07/19 10:31 BP 124/79 06/07/19 10:31 Pulse Ox Weight: 221 lb - OB Specific Contraction Duration (sec): 20-60 Contraction Frequency (min): 3-6.5 Contraction Intensity: Mild to Moderate Movement: Active Heart Tones: Present Heart Tones per Min: 145 (NST reactive) Heart Rate (FHR) Variability: Moderate (6-25 bmp) Presentation: Right Occiput Anterior (ESTRELLITA) Estimated Weight: 8 1/2 # - Palmer Score Palmer Score Cervix Position: Midposition Palmer Score Consistency: Soft Palmer Score Effacement: >80% Palmer Score Dilation: > 5 cm Palmer Score Infant's Station: -2 Palmer Score Total: 10 - Exam General: Alert, Oriented HEENT: PERRLA, Conjunctiva Clear, EACs Clear, EOMI, Hearing Intact, Mucosa Moist & [place], Nares Patent, Normal Nasal Septum, Posterior Pharynx Clear, TMs Clear Neck: Supple, Trachea Midline Lungs: Clear to Auscultation, Normal Respiratory Effort Cardiovascular: Regular Rate, Regular Rhythm GI/Abdominal Exam: Normal Bowel Sounds, Soft, Non-Tender, No Organomegaly, No Distention, No Abnormal Bruit, No Mass, Pelvis Stable Rectal Exam: Normal Exam, Normal Rectal Tone Genitourinary: Normal external exam, Normal bimanual exam, Normal speculum exam Back Exam: Normal Inspection, Full Range of Motion Extremities: Normal Inspection, Normal Range of Motion, Non-Tender, No Pedal Edema, Normal Capillary Refill Skin: Warm, Dry, Intact Neurological: Cranial Nerves Intact, Reflexes Equal Bilateral Psychiatric: Alert, Normal Affect, Normal Mood - Patient Data Lab Results Last 24 hrs: Laboratory Results - last 24 hr 06/07/19 Range/Units 10:16 WBC 7.4 (5.0-10.0) 10^3/uL RBC 4.34 (4.2-5.4) 10^6/uL Hgb 10.6 L (12.0-16.0) g/dL Hct 33.3 L (37.0-47.0) % MCV 76.7 L D (80-100) fL MCH 24.4 L (27.0-34.0) pg MCHC 31.8 L (33.0-35.0) g/dL Plt Count 191 (150-450) 10^3/uL Result Diagrams: 06/07/19 10:16 - Problem List (1) Term SNOMED Code(s): 15896649 ICD Code: Z34.90 - ENCNTR FOR SUPRVSN OF NORMAL , UNSP, UNSP TRIMESTER Status: Acute Current Visit: Yes (2) Labor established SNOMED Code(s): 94242745 ICD Code: AWB3078 - Status: Acute Current Visit: Yes (3) Blood type A+ SNOMED Code(s): 339400230 ICD Code: Z67.10 - TYPE A BLOOD, RH POSITIVE Status: Acute Current Visit : No (4) Group B Streptococcus not isolated SNOMED Code(s): 545152336 ICD Code: CFZ5110 - Status: Acute Current Visit: No (5) Maternal anemia in , antepartum SNOMED Code(s): 298819746 ICD Code: O99.019 - ANEMIA COMPLICATING , UNSPECIFIED TRIMESTER Status: Acute Current Visit: No (6) Mother currently breast-feeding SNOMED Code(s): 233250072 ICD Code: PUS2063 - Status: Acute Current Visit: No (7) Rubella immune SNOMED Code(s): 355875254 ICD Code: Z78.9 - OTHER SPECIFIED HEALTH STATUS Status: Acute Current Visit: No (8) Vacuum extractor delivery, delivered SNOMED Code(s): 861754517 ICD Code: O66.5 - ATTEMPTED APPLICATION OF VACUUM EXTRACTOR AND FORCEPS Status: Acute Current Visit: No (9) High risk , antepartum SNOMED Code(s): 30936302 ICD Code: O09.90 - SUPERVISION OF HIGH RISK , UNSP, UNSP TRIMESTER Status: Acute Current Visit: Yes (10) History of shoulder dystocia in prior , currently in third trimester SNOMED Code(s): 33453938, 73538453 ICD Code: O09.293 - SUPRVSN OF PREG W POOR REPRODCTV OR OBSTET HX, THIRD TRI Status: Acute Current Visit: Yes Problem List Initiated/Reviewed/Updated: Yes Orders Last 24hrs: Active Orders 24 hr Category Date Time Status Patient Status [ADT] Routine ADT 06/07/19 10:39 Active Communication Order [RC] ASDIRECTED Care 06/07/19 10:39 Active Notify Provider Vital Signs OB [RC] ASDIRECTED Care 06/07/19 10:39 Active Notify Provider [RC] PRN Care 06/07/19 10:39 Active Pump Management, Intrathecal [RC] ASDIRECTED Care 06/07/19 10:41 Active Up ad Denisa [RC] ASDIRECTED Care 06/07/19 10:39 Active Vital Signs [RC] PER UNIT ROUTINE Care 06/07/19 10:39 Active Clear Liquid Diet [DIET] Diet 06/07/19 Lunch Active Acetaminophen [Tylenol] Med 06/07/19 10:39 Active 650 mg PO Q4H PRN Carboprost Tromethamine [Hemabate DS] Med 06/07/19 10:39 Active 250 mcg IM ASDIRECTED PRN Lactated Ringers [Ringers, Lactated] 1,000 ml Med 06/07/19 10:45 Active IV ASDIRECTED Lidocaine 1% [Xylocaine-MPF 1%] Med 06/07/19 10:39 Active 30 ml INJECT ASDIRECTED PRN Methylergonovine [Methergine] Med 06/07/19 10:39 Active 0.2 mg IM ASDIRECTED PRN Ondansetron [Zofran] Med 06/07/19 10:39 Active 4 mg IVPUSH Q4H PRN Oxytocin/Normal Saline [Pitocin in NS 30 UNIT/500 ML] Med 06/07/19 10:45 Active 30 unit in 500 ml IV TITRATE Sodium Chloride 0.9% [Saline Flush] Med 06/07/19 10:39 Active 10 ml FLUSH ASDIRECTED PRN Tranexamic Acid [Cyklokapron] 1,000 mg Med 06/07/19 10:39 Active Sodium Chloride 0.9% [Normal Saline] 100 ml IV ONETIME miSOPROStoL [Cytotec] Med 06/07/19 10:39 Active 800 mcg RECTAL ASDIRECTED PRN Saline Lock Insert [OM.PC] Routine Oth 06/07/19 10:39 Ordered Resuscitation Status Routine Resus Stat 06/07/19 10:39 Ordered Medication Orders Acetaminophen (Tylenol) 650 mg PO Q4H PRN PRN Reason: Pain (Mild 1-3) and fever Carboprost Tromethamine (Hemabate Ds) 250 mcg IM ASDIRECTED PRN PRN Reason: HEMORRHAGE Lactated Ringer's (Ringers, Lactated) 1,000 mls @ 125 mls/hr IV ASDIRECTED LEORA Last Admin: 06/07/19 12:15 Dose: 125 mls/hr Oxytocin/Sodium Chloride (Pitocin In Ns 30 Unit/500 Ml) 30 unit in 500 mls @ 2 mls/hr IV TITRATE LEORA; Protocol Last Titration: 06/07/19 13:59 Dose: 1 munits/min, 1 mls/hr Admin: 06/07/19 13:58 Dose: 2 munits/min, 2 mls/hr Tranexamic Acid 1,000 mg/ (Sodium Chloride) 110 mls @ 660 mls/hr IV ONETIME PRN PRN Reason: Bleeding Lidocaine HCl (Xylocaine-Mpf 1%) 30 ml INJECT ASDIRECTED PRN PRN Reason: Perineal Repair Methylergonovine Maleate (Methergine) 0.2 mg IM ASDIRECTED PRN PRN Reason: Hemorrhage Misoprostol (Cytotec) 800 mcg RECTAL ASDIRECTED PRN PRN Reason: Hemorrhage Ondansetron HCl (Zofran) 4 mg IVPUSH Q4H PRN PRN Reason: Nausea/Vomiting Last Admin: 06/07/19 14:16 Dose: 4 mg Sodium Chloride (Saline Flush) 10 ml FLUSH ASDIRECTED PRN PRN Reason: Keep Vein Open Assessment/Plan Comment:: Temi is 24yo @ 38w6d in labor with advanced cervical dilation @ 6+cm with BBOWI Hx shoulder dystocia and VAVD A+, RI, GBS negative. NST reactive Anemia, hgb 10.6/ PLT WNL Plan: admit RO AROM--clear fluid Pitocin augmentation if needed watch for recurrent shoulder dystocia planning intrathecal orders placed. all quesxtions answered. plans to breast feed. they are happy with plan and care. hmb
[2019-06-07] MEDS ORDERED: EPINEPHrine 1 MG/1 ML Amp ONE ×2 (14:27→18:59)
[2019-06-07] MEDS ORDERED: fentaNYL 100 MCG/2 ML SDV ONE (14:27)
--- NOTE | 2019-06-07 15:17 | PCM.PRNOTE ---
- Free Text/Narrative Note: Requested to provide analgesia to full term patient in severe pain. Upon entering the room, patient is sitting on edge of bed complaining of severe abdominal/pelvic pain and discomfort. Procedure was discussed with patient including adverse outcomes and expectations. Pt consented to analgesia, SAB/ IT. Pt placed into a proper sitting position. Landmarks for SAB/IT were identified and marked. Hands were washed and appropriate PPE was applied. Back was prepped with betadine x3. A sterile, transparent, fenestrated drape was applied. Excess betadine was removed. Using 3 mL of a 1% lidocaine solution , a skin wheel was placed at the L2/L3 interspace. A 24 ga (4 inch) Pencan spinal needle was inserted until positive for CSF. Negative for heme or paresthesias. Injected fentanyl 30 mcg, sufentanil 25 mcg, and 6 mg of a 0.75% bupivacaine solution with an epi wash. Pt was placed left lateral position for approximately 20 minutes. There were zero complications or adverse outcomes. Will continue to monitor. Procedure Date & Time: 06/07/19 [id number]
--- NOTE | 2019-06-07 18:05 | PCM.DEL ---
L & D Note - General Info Date of Service: 06/07/19 (time of delivery: 1717) Mother's Due Date: 06/15/19 (38w6d) - Delivery Note Labor: Spontaneous, Augmented by ARM, Augmented by Oxytocin Delivery Outcome: Livebirth Delivery Method: Spontaneous Vaginal Delivery-Single Infant Delivery Mode: Vacuum Extraction Presentation: Right Occiput Anterior (ESTRELLITA) Nuchal Cord: Present (not around neck, but just wrapped over anterior left shoulder) Prep: Povidone-Iodine (Betadine Anesthesia Type: Intrathecal Amniotic Fluid Description: Clear Episiotomy Type: None Laceration: 1st Degree Suture type: Vicryl Suture size: 3-0 Placenta: Intact, Expressed Cord: 3 Vessels Estimated Blood Loss: 250 Resuscitation Needed: No [place]: Bulb Syringe, Stimulated, Warmed Provider: Megan Humphrey Score 1 min: 8 Score 5 min: 9 Second Stage Interventions: Reports: Encouragement Given, Pushing Effectively, Pushing, McRobert's Position Delivery Comments (Free Text/Narrative):: mother pushed in Viral position with FOB Emiliano and nursing staff helping to assist bringing her knees back. baby with cxns. Vacuum applied for 1 cxn and head delivered. cord over anterior left shoulder and easily removed. anterior shoulder delivered under pubic bone, followed by rest of baby. wiped and dried, suctioned with bulb and placed on mother's chest for skin to skin. strong cry at . 3vc doubly clamped by , then cut by Emiliano. cord blood obtained. placenta delivered intact fundus firm, pitocin infused per protocol 1st degree midline perineal lac repaired with one layer 3-0 stitch easily. EBL <250 cc both mom and baby doing well APGARs 8 & 9 BW 3800g, 8lb 6oz hmb Induction Criteria - Palmer Score Palmer Score Dilation: > 5 cm Palmer Score Effacement: >80% Palmer Score Infant's Station: -1 ,0 Palmer Score Consistency: Soft Palmer Score Cervix Position: Midposition Palmer Score Total: 11 Palmer Score Presenting Part: Reports: Cephalic - Induction Gestational Age >/= 39 wks: No Medical Indication: labor, hx shoulder dystocia, hx VAVD Estimated Pelvis: Reports: Adequate Reassuring Monitoring Strip: Yes Absence of Tachy Systole: Yes - Augmentation Estimated Pelvis: Reports: Adequate Weight Estimated:: Reports: AGA Estimated Weight if LGA: 8 lb 8 oz Reassuring Monitoring Strip: Yes Absence of Tachy Systole: Yes Vacuum Extractor Progress Note - Alternative Labor Strategies Considered Alternative Labor Strategies Considered:: Reports: Yes Strategies Considered:: Reports: Contraction Intensity Adequate, Position Changes Used to Facilitate Rotation & Descent, Empty Bladder Indications Considered:: Reports: Yes Indications:: Reports: Shortening of 2nd Stage for Maternal Benefit, Suspicion of Immediate or Potential Compromise Time Out:: Reports: Yes - Patient Prepared Patient Prepared:: Reports: Yes Informed Consent:: Reports: Yes, Verbal Risks: Reports: Yes Anesthesia/Analgesia Adequate:: Reports: Yes Comments:: intrathecal working well - Probability of Success High Probability of Success:: Reports: Yes Weight Estimated:: Reports: AGA Patient Diabetic:: Reports: No Pelvis Adequate:: Reports: Yes Position:: ESTRELLITA Asynclitic:: Reports: No Station:: Comments:: vacuum on with one contraction - Application Time Maximum Application Time & Number of Pop-Offs Predetermined:: Reports: No - General Info Date of Service: 06/07/19 (Time of delivery 1716) Admission Dx/Problem (Free Text): Patient Status Order with Admit Dx/Problem 06/07/19 10:39 Patient Status [ADT] Routine Admission Diagnosis/Problem Admission Diagnosis/Problem Labor established 06/07/19 14:18 24yo - Patient Data Vitals - Most Recent: Last Vital Signs Temp 99.7 F 06/07/19 10:15 Pulse 83 06/07/19 10:31 Resp 16 06/07/19 10:31 BP 124/79 06/07/19 10:31 Pulse Ox Weight - Most Recent: 221 lb I&O - Last 24 Hours: Intake & Output 06/07/19 06/07/19 06/07/19 06:59 14:59 22:59 Intake Total 1999 Balance 1999 Lab Results Last 24 Hours: Laboratory Results - last 24 hr 06/07/19 Range/Units 10:16 WBC 7.4 (5.0-10.0) 10^3/uL RBC 4.34 (4.2-5.4) 10^6/uL Hgb 10.6 L (12.0-16.0) g/dL Hct 33.3 L (37.0-47.0) % MCV 76.7 L D (80-100) fL MCH 24.4 L (27.0-34.0) pg MCHC 31.8 L (33.0-35.0) g/dL Plt Count 191 (150-450) 10^3/uL Med Orders - Current: Current Medications Acetaminophen (Tylenol) 650 mg PO Q4H PRN PRN Reason: Pain (Mild 1-3) and fever Carboprost Tromethamine (Hemabate Ds) 250 mcg IM ASDIRECTED PRN PRN Reason: HEMORRHAGE Lactated Ringer's (Ringers, Lactated) 1,000 mls @ 125 mls/hr IV ASDIRECTED LEORA Last Admin: 06/07/19 14:52 Dose: 125 mls/hr Oxytocin/Sodium Chloride (Pitocin In Ns 30 Unit/500 Ml) 30 unit in 500 mls @ 2 mls/hr IV TITRATE LEORA; Protocol Last Titration: 06/07/19 15:21 Dose: 1 munits/min, 1 mls/hr Tranexamic Acid 1,000 mg/ (Sodium Chloride) 110 mls @ 660 mls/hr IV ONETIME PRN PRN Reason: Bleeding Lidocaine HCl (Xylocaine-Mpf 1%) 30 ml INJECT ASDIRECTED PRN PRN Reason: Perineal Repair Methylergonovine Maleate (Methergine) 0.2 mg IM ASDIRECTED PRN PRN Reason: Hemorrhage Misoprostol (Cytotec) 800 mcg RECTAL ASDIRECTED PRN PRN Reason: Hemorrhage Ondansetron HCl (Zofran) 4 mg IVPUSH Q4H PRN PRN Reason: Nausea/Vomiting Last Admin: 06/07/19 14:16 Dose: 4 mg Sodium Chloride (Saline Flush) 10 ml FLUSH ASDIRECTED PRN PRN Reason: Keep Vein Open Discontinued Medications Epinephrine HCl (Adrenalin) Confirm Administered Dose 1 mg .ROUTE .STK-MED ONE Stop: 06/07/19 14:28 Last Admin: 06/07/19 16:29 Dose: Not Given Fentanyl (Sublimaze) Confirm Administered Dose 100 mcg .ROUTE .STK-MED ONE Stop: 06/07/19 14:28 Last Admin: 06/07/19 16:30 Dose: Not Given Lactated Ringer's (Ringers, Lactated) 1,000 mls @ 500 mls/hr IV BOLUS ONE Stop: 06/07/19 12:38 Last Admin: 06/07/19 14:28 Dose: 500 mls/hr Sufentanil Citrate (Sufenta) Confirm Administered Dose 50 mcg .ROUTE .STK-MED ONE Stop: 06/07/19 14:29 Last Admin: 06/07/19 16:30 Dose: Not Given - Problem List & Annotations (1) Term SNOMED Code(s): 40405595 Code(s): Z34.90 - ENCNTR FOR SUPRVSN OF NORMAL , UNSP, UNSP TRIMESTER Status: Acute Current Visit: Yes (2) Labor established SNOMED Code(s): 28929011 Code(s): VFP8525 - Status: Acute Current Visit: Yes (3) Blood type A+ SNOMED Code(s): 526977383 Code(s): Z67.10 - TYPE A BLOOD, RH POSITIVE Status: Acute Current Visit: No (4) Group B Streptococcus not isolated SNOMED Code(s): 036598156 Code(s): DKS8869 - Status: Acute Current Visit: No (5) Maternal anemia in , antepartum SNOMED Code(s): 955182369 Code(s): O99.019 - ANEMIA COMPLICATING , UNSPECIFIED TRIMESTER Status: Acute Current Visit: No (6) Mother currently breast-feeding SNOMED Code(s): 484476013 Code(s): TYS7188 - Status: Acute Current Visit: No (7) Rubella immune SNOMED Code(s): 440878593 Code(s): Z78.9 - OTHER SPECIFIED HEALTH STATUS Status: Acute Current Visit: No (8) Vacuum extractor delivery, delivered SNOMED Code(s): 754750862 Code(s): O66.5 - ATTEMPTED APPLICATION OF VACUUM EXTRACTOR AND FORCEPS Status: Acute Current Visit: No (9) High risk , antepartum SNOMED Code(s): 27323497 Code(s): O09.90 - SUPERVISION OF HIGH RISK , UNSP, UNSP TRIMESTER Status: Acute Current Visit: Yes (10) History of shoulder dystocia in prior , currently in third trimester SNOMED Code(s): 42135670, 09199954 Code(s): O09.293 - SUPRVSN OF PREG W POOR REPRODCTV OR OBSTET HX, THIRD TRI Status: Acute Current Visit: Yes - Problem List Review Problem List Initiated/Reviewed/Updated: Yes - My Orders Last 24 Hours: My Active Orders 06/07/19 10:39 Patient Status [ADT] Routine Communication Order [RC] ASDIRECTED Notify Provider Vital Signs OB [RC] ASDIRECTED Notify Provider [RC] PRN Up ad Denisa [RC] ASDIRECTED Vital Signs [RC] PER UNIT ROUTINE Acetaminophen [Tylenol] 650 mg PO Q4H PRN Carboprost Tromethamine [Hemabate DS] 250 mcg IM ASDIRECTED PRN Lidocaine 1% [Xylocaine-MPF 1%] 30 ml INJECT ASDIRECTED PRN Methylergonovine [Methergine] 0.2 mg IM ASDIRECTED PRN Ondansetron [Zofran] 4 mg IVPUSH Q4H PRN Sodium Chloride 0.9% [Saline Flush] 10 ml FLUSH ASDIRECTED PRN Tranexamic Acid [Cyklokapron] 1,000 mg Sodium Chloride 0.9% [Normal Saline] 100 ml IV ONETIME miSOPROStoL [Cytotec] 800 mcg RECTAL ASDIRECTED PRN Saline Lock Insert [OM.PC] Routine Resuscitation Status Routine 06/07/19 10:41 Pump Management, Intrathecal [RC] ASDIRECTED 06/07/19 10:45 Lactated Ringers [Ringers, Lactated] 1,000 ml IV ASDIRECTED Oxytocin/Normal Saline [Pitocin in NS 30 UNIT/500 ML] 30 unit in 500 ml IV TITRATE 06/07/19 Lunch Clear Liquid Diet [DIET] - Plan Plan:: Temi is 24yo @ 38w6d in labor with advanced cervical dilation @ 6+cm with BBOWI Hx shoulder dystocia and VAVD A+, RI, GBS negative. NST reactive Anemia, hgb 10.6/ PLT WNL Plan: admit RO AROM--clear fluid Pitocin augmentation if needed watch for recurrent shoulder dystocia planning intrathecal orders placed. all quesxtions answered. plans to breast feed. they are happy with plan and care. hmb Delivery: VAVD with 1 cxn vaible female 3800g/ 8lb 6oz APGARs 8 & 9 no complications see notes. hmb
[2019-06-07] MEDS ORDERED: fentaNYL 100 MCG/2 ML SDV ITHECAL ONE (18:59)
[2019-06-07] MEDS ORDERED: Bupivacaine 0.75%/D5W 2 ML Amp ISPINAL ONE (18:59)
[2019-06-07] MEDS ORDERED: Benzocaine/Menthol 20%-0.5% Spray 56 GM Canister TOP PRN (21:08)
[2019-06-07] MEDS ORDERED: Zolpidem 5 MG Tab PO PRN (21:08)
[2019-06-07] MEDS ORDERED: Simethicone 80 MG Tab.Chew PO PRN (21:08)
[2019-06-07] MEDS: Acetaminophen 325 MG Tab PO PRN (21:08)
[2019-06-07] MEDS: Docusate Sodium 100 MG Cap PO PRN (22:19)
[2019-06-07] MEDS: Ibuprofen 800 MG Tab PO PRN (22:19)
[2019-06-08] MEDS: Acetaminophen 325 MG Tab PO PRN (05:17)
[2019-06-08] MEDS ORDERED: Prenatal Multivitamin with Calcium/Folic Acid/Iron Tab PO SCH (09:00)
[2019-06-08] MEDS: Docusate Sodium 100 MG Cap PO PRN (09:27)
[2019-06-08] MEDS: Ibuprofen 800 MG Tab PO PRN ×2 (09:28→18:07)
[2019-06-08 10:48] VITALS: BP 116/66; PULSE 68
--- NOTE | 2019-06-08 16:57 | PCM.DCSUM1 ---
Discharge Summary - Hospital Course Free Text/Narrative:: Temi is a 24yo WF G3 now P3 who presented to the clinic at 38w6d in early labor @ 6+cm dilated with large bulging BOWI. subsequently admitted to L&D. NST reactive. IV placed. CBC reassuring. AROM clear fluid pitocin augmentation only to 2mU intrathecal placed. progressed to complete dilation, and labored down. pushed to with cxn. vacuum placed due to hx of shoulder dystocia, prior VAVD, and bradycardia with cxns. Vacuum assist with only 1 cxn and viable female delivered to mother's chest for skin to skin contact and nursing. APGARs 8 & 9 cord around anterio left shoulder, NOT neck. strong cry at . BW 3800g/8lb 6oz nursing. no complications. see delivery note for details. mom is requesting early discharge at 24 hours. hmb HPI Initial Comments: see admit H&P, notes and above. Brief History: as above Diagnosis: Stroke: No - Discharge Data Discharge Date: 06/08/19 (DISCHARGE DATE) Discharge Disposition: Home, Self-Care 01 Condition: Good - Referral to Home Health Primary Care Physician: Megan Humphrey MD - Discharge Diagnosis/Problem(s) (1) Term SNOMED Code(s): 84372532 ICD Code: Z34.90 - ENCNTR FOR SUPRVSN OF NORMAL , UNSP, UNSP TRIMESTER Status: Acute Current Visit: Yes (2) Labor established SNOMED Code(s): 91165119 ICD Code: [id number] - Status: Acute Current Visit: Yes (3) Blood type A+ SNOMED Code(s): 384388550 ICD Code: Z67.10 - TYPE A BLOOD, RH POSITIVE Status: Acute Current Visit : No (4) Group B Streptococcus not isolated SNOMED Code(s): 420115446 ICD Code: AZT8017 - Status: Acute Current Visit: No (5) Maternal anemia in , antepartum SNOMED Code(s): 052346021 ICD Code: O99.019 - ANEMIA COMPLICATING , UNSPECIFIED TRIMESTER Status: Acute Current Visit: No (6) Mother currently breast-feeding SNOMED Code(s): 821096292 ICD Code: CYB1172 - Status: Acute Current Visit: No (7) Rubella immune SNOMED Code(s): 409853674 ICD Code: Z78.9 - OTHER SPECIFIED HEALTH STATUS Status: Acute Current Visit: No (8) Vacuum extractor delivery, delivered SNOMED Code(s): 742665951 ICD Code: O66.5 - ATTEMPTED APPLICATION OF VACUUM EXTRACTOR AND FORCEPS Status: Acute Current Visit: No (9) High risk , antepartum SNOMED Code(s): 39012610 ICD Code: O09.90 - SUPERVISION OF HIGH RISK , UNSP, UNSP TRIMESTER Status: Acute Current Visit: Yes (10) History of shoulder dystocia in prior , currently in third trimester SNOMED Code(s): 03686689, 16863043 ICD Code: O09.293 - SUPRVSN OF PREG W POOR REPRODCTV OR OBSTET HX, THIRD TRI Status: Acute Current Visit: Yes - Patient Summary/Data Complications: none Consults: Consultations 06/07/19 21:08 Consult to Sporting Goods Sales Manager [CONS] Routine Hospital Course: course uneventful voiding, eating ambulating without difficulty. bladder and bowel function normal afebrile with VSS flow normal, fundus firm home today as requested. - Patient Instructions Diet: Usual Diet as Tolerated Activity: As Tolerated Driving: May Drive Today Showering/Bathing: May Shower Notify Provider of: Fever, Increased Pain, Swelling and Redness, Drainage, Nausea and/or Vomiting - Discharge Plan *PRESCRIPTION DRUG MONITORING PROGRAM REVIEWED*: Not Applicable *COPY OF PRESCRIPTION DRUG MONITORING REPORT IN PATIENT CALOS: Not Applicable Home Medications: Home Meds Vit with Ca/FA/Iron [ Plus Iron] 1 each PO DAILY tablet [Rx] Patient Handouts: Care of a Perineal Tear, Care After Vaginal Delivery - Discharge Summary/Plan Comment DC Time >30 min.: No Discharge Summary/Plan Comment: recheck 6 weeks and prn. - Patient Data Vitals - Most Recent: Last Vital Signs Temp 99.5 F 06/08/19 08:00 Pulse 68 06/08/19 08:00 Resp 14 06/08/19 08:00 BP 116/66 06/08/19 08:00 Pulse Ox 99 06/08/19 08:00 Weight - Most Recent: 221 lb Med Orders - Current: Current Medications Acetaminophen (Tylenol) 650 mg PO Q4H PRN PRN Reason: Pain (Mild 1-3) and fever Last Admin: 06/08/19 05:17 Dose: 650 mg Benzocaine/Menthol (Dermoplast Pain Relief [place]) 0 gm TOP Q4H PRN PRN Reason: Perineal comfort measures Last Admin: 06/07/19 22:19 Dose: 1 spray Carboprost Tromethamine (Hemabate Ds) 250 mcg IM ASDIRECTED PRN PRN Reason: HEMORRHAGE Docusate Sodium (Colace) 100 mg PO BID PRN PRN Reason: Constipation Last Admin: 06/08/19 09:27 Dose: 100 mg Lactated Ringer's (Ringers, Lactated) 1,000 mls @ 125 mls/hr IV ASDIRECTED LEORA Last Admin: 06/07/19 14:52 Dose: 125 mls/hr Oxytocin/Sodium Chloride (Pitocin In Ns 30 Unit/500 Ml) 30 unit in 500 mls @ 2 mls/hr IV TITRATE LEORA; Protocol Last Titration: 06/07/19 20:15 Dose: 0 munits/min, 0 mls/hr Tranexamic Acid 1,000 mg/ (Sodium Chloride) 110 mls @ 660 mls/hr IV ONETIME PRN PRN Reason: Bleeding Ibuprofen (Motrin) 800 mg PO Q8H PRN PRN Reason: Mild Pain or Fever Last Admin: 06/08/19 09:28 Dose: 800 mg Lidocaine HCl (Xylocaine-Mpf 1%) 30 ml INJECT ASDIRECTED PRN PRN Reason: Perineal Repair Methylergonovine Maleate (Methergine) 0.2 mg IM ASDIRECTED PRN PRN Reason: Hemorrhage Misoprostol (Cytotec) 800 mcg RECTAL ASDIRECTED PRN PRN Reason: Hemorrhage Ondansetron HCl (Zofran) 4 mg IVPUSH Q4H PRN PRN Reason: Nausea/Vomiting Last Admin: 06/07/19 14:16 Dose: 4 mg Prenat Multivit/Bar Captain/Iron/Folic Ac ( Plus Iron) 1 each PO DAILY LEORA Last Admin: 06/08/19 09:27 Dose: 1 each Simethicone (Simethicone) 80 mg PO Q4H PRN PRN Reason: Gas Sodium Chloride (Saline Flush) 10 ml FLUSH ASDIRECTED PRN PRN Reason: Keep Vein Open Witch Jayda (Medi-Pads) 1 each TOP Q4HR PRN PRN Reason: Perineal Comfort Measure Zolpidem Tartrate (Ambien) 5 mg PO BEDTIME PRN PRN Reason: Insomnia Discontinued Medications Epinephrine HCl (Adrenalin) Confirm Administered Dose 1 mg .ROUTE .STK-MED ONE Stop: 06/07/19 14:28 Last Admin: 06/07/19 16:29 Dose: Not Given Fentanyl (Sublimaze) Confirm Administered Dose 100 mcg .ROUTE .STK-MED ONE Stop: 06/07/19 14:28 Last Admin: 06/07/19 16:30 Dose: Not Given Lactated Ringer's (Ringers, Lactated) 1,000 mls @ 500 mls/hr IV BOLUS ONE Stop: 06/07/19 12:38 Last Admin: 06/07/19 14:28 Dose: 500 mls/hr Sufentanil Citrate (Sufenta) Confirm Administered Dose 50 mcg .ROUTE .STK-MED ONE Stop: 06/07/19 14:29 Last Admin: 06/07/19 16:30 Dose: Not Given
== END 2019-06-08 19:00 | disposition home or self-care (01) | DRG 560 ==
LOC: DL.OB 09:51 → OBSVTOIN 17:17 → DL.OB 17:17
PROVIDERS: ADMIT Family Medicine; ATTEND Family Medicine
PROC: 10D07Z6 Extraction of Products of Conception, Vacuum, Via Natural or Artificial Opening (ICD-10-PCS; principal; 2019-06-07)
PROC: 10907ZC Drainage of Amniotic Fluid, Therapeutic from Products of Conception, Via Natural or Artificial Opening (ICD-10-PCS; 2019-06-07)
PROC: 0HQ9XZZ Repair Perineum Skin, External Approach (ICD-10-PCS; 2019-06-07)
PROC: 3E0R3BZ Introduction of Anesthetic Agent into Spinal Canal, Percutaneous Approach (ICD-10-PCS; 2019-06-07)
DX: O69.81X0 Labor and delivery complicated by cord around neck, without compression, not applicable or unspecified (principal); Z37.0 Single live birth; O99.02 Anemia complicating childbirth; O36.8330 Maternal care for abnormalities of the fetal heart rate or rhythm, third trimester, not applicable or unspecified; O70.0 First degree perineal laceration during delivery; Z79.899 Other long term (current) drug therapy; Z3A.38 38 weeks gestation of pregnancy
CPT/HCPCS: 36415; 51701; 59409; 85027; A9270-GY; J0171; J2405; J2590; J3010; J7120